=== PATIENT | male | born 1975 | race Caucasian/White ===

== ENCOUNTER 2017-03-21 19:42 | Emergency (ER) | payer OTHER ==
[~2017-03-21] VITALS: Ht 185.4 cm; Wt 104.3 kg
[2017-03-21 21:15] VITALS: BP 135/86
--- NOTE | 2017-03-21 23:16 | PHYS DOC ---
Past History Past Medical History: No Pertinent History Past Surgical History: Other Alcohol Use: Occasionally Drug Use: None Adult General Chief Complaint Chief Complaint: FLU SYMPTOM HPI HPI Patient is a 41 year old male who presents with a week of congestion, cough, sore throat, body aches, chills. Nausea but no vomiting. Loose stools. No urinary complaints. No rash. Spouse is ill at home as well. Review of Systems Review of Systems Constitutional: POS fever & chills Eyes: Denies change in visual acuity, redness, or eye pain HENT: POS nasal congestion or sore throat Respiratory: POS cough but denies shortness of breath Cardiovascular: No chest pain GI: Denies abdominal pain, POS nausea, Denies vomiting, bloody stools or diarrhea : Denies dysuria or hematuria Musculoskeletal: Denies back pain. POS body aches. Integument: Denies rash or skin lesions Neurologic: Denies headache, focal weakness or sensory changes All other systems were reviewed and found to be within normal limits, except as documented in this note. Physical Exam Physical Exam Constitutional: Well developed, well nourished, no acute distress, non-toxic appearance. HENT: Normocephalic, atraumatic, TM clear bilaterally, bilateral external ears normal, oropharynx moist, no oral exudates, nose normal. pharynx without lesions , sores, exudate or erythema. No drooling. Uvula was intact without swelling. Eyes: PERRLA, EOMI, conjunctiva normal, no discharge. Neck: Normal range of motion, no tenderness, supple, no stridor. No meningismus. Cardiovascular:Heart rate regular rhythm, no murmur Lungs & Thorax: Bilateral breath sounds clear to auscultation Abdomen: Bowel sounds normal, soft, no tenderness, no masses, no pulsatile masses. Skin: Warm, dry, no erythema, no rash. Back: No tenderness, no CVA tenderness. Extremities: No tenderness, no cyanosis, no clubbing, ROM intact, no edema. Neurologic: Alert and oriented X 3, normal motor function, normal sensory function, no focal deficits noted. Current Patient Data Vital Signs Vital Signs Date Time Temp Pulse Resp B/P (MAP) Pulse Ox O2 Delivery O2 Flow Rate FiO2 03/21/17 21:15 99.8 83 20 95 Room Air Lab Results Laboratory Tests Test 03/21/17 23:59 Group A Streptococcus Rapid Negative (NEGATIVE) Course & Med Decision Making Course & Med Decision Making Evaluated patient upon arrival. Did not feel influenza screen was warranted as he is already one week into illness. Presently afebrile and normocardic. Strep was performed as that was his main complaint. He also has other family members ill at home "and I want to make sure I don't have strep." Rapid strep negative. Given viral syndrome precautions. Tylenol and motrin po. Zofran Rx and tessalon perles. I have spoken with the patient and/or caregivers. I have explained the patient' s condition, diagnosis and treatment plan based on the information available to me at this time. I have answered the patient's and/or caregiver's questions and addressed any concerns. The patient and/or caregivers have as good an understanding of the patient's diagnosis, condition and treatment plan as can be expected at this point. The patient's condition is stable and appropriate for discharge from the emergency department. The patient will pursue further outpatient evaluation with the primary care physician or other designated or consulting physician as outlined in the discharge instructions. The patient and/or caregivers are agreeable to this plan of care and follow-up instructions have been explained in detail. The patient and/or caregivers have received these instructions in written format and have expressed an understanding of the discharge instructions. The patient and/or caregivers are aware that any significant change in condition or worsening of symptoms should prompt an immediate return to this or the closest emergency department or a call to 911. Dragon Disclaimer Dragon Disclaimer This electronic medical record was generated, in whole or in part, using a voice recognition dictation system. Departure Departure: Impression: Primary Impression: Viral syndrome Disposition: 01 HOME, SELF-CARE Condition: STABLE Referrals: PCP,UNKNOWN (PCP) Patient Instructions: Influenza Facts, Influenza, Adult, Viral Syndrome Additional Instructions: YOUR STREP WAS NEGATIVE. YOU PROBABLY HAVE INFLUENZA. WE DID NOT CHECK IT BECAUSE YOU ARE >72 HOURS OUT AND THE MEDICATION IS ONLY INDICATED FOR THE FIRST 24-48 HOURS. YOU WERE GIVEN NAUSEA MEDICATION AND COUGH MEDICATION. CONTINUE WITH TYLENOL AND MOTRIN Scripts Ondansetron (ZOFRAN ODT) 8 Mg Tab.rapdis 4 MG PO Q4-6HRS Y for NAUSEA, #14 Prov: SHIRLEY BACON MD 03/21/17 Benzonatate (TESSALON PERLE) 100 Mg Capsule 1 CAP PO TID, #30 CAP Prov: SHIRLEY BACON MD 03/21/17 SHIRLEY BACON MD Mar 21, 2017 23:16
[2017-03-21] MEDS ORDERED: ONDA8TAB12 PO (23:29)
[2017-03-21] MEDS ORDERED: BENZ100C PO (23:29)
[2017-03-22] MEDS ORDERED: BENZONATATE 100 MG CAPSULE. PO ONE
[2017-03-22] MEDS ORDERED: ONDANSETRON ODT 4 MG TAB.RAPDIS PO ONE
== END 2017-03-21 23:50 | disposition home or self-care (01) ==
LOC: ER 19:42
DX: B34.9 Viral infection, unspecified (principal)
CPT/HCPCS: 87070; 87880; 99283; Q0162